=== PATIENT | male | born 1995 | race Caucasian/White ===

== ENCOUNTER 2018-07-05 02:01 | Emergency (ER) | payer BC ==
[2018-07-05] MEDS ORDERED: ONDANSETRON 4 MG/2 ML VIAL IVP ONE (02:07)
[2018-07-05] MEDS ORDERED: NS 1,000 ML IV ONE (02:07)
--- NOTE | 2018-07-05 02:10 | EDPHY ---
H & P Time Seen by Provider: 07/05/18 02:08 HPI/ROS: HPI CHIEF COMPLAINT: Alcohol Intoxication HISTORY OF PRESENT ILLNESS: 22-year-old male, presents to the emergency room acute alcohol intoxication. Patient arrives by EMS and is very somnolent, however protecting his airway. Patient is highly intoxicated with alcohol. Unable to obtain any history from him. EMS reports they were called to a private residence where he was found vomiting and had vomit all over him. Smells of alcohol. They report no trauma. Normal blood glucose of 125. EMS reports that the patient was found in a closet vomiting. Then 911 was called. Patient is on a [facility] HOLD. He arrives to ER room 18. And is highly intoxicated with alcohol. Past Medical History: Unknown Past Surgical History: Unknown Social History: Per EMS Large amount of alcohol this evening. Unknown exact quantity. Family History: Unknown ROS REVIEW OF SYSTEMS: Limited due to acute alcohol intoxication Exam Constitutional Intoxicated, triage nursing summary reviewed, vital signs reviewed, somnolent, smells of alcohol Eyes normal conjunctivae and sclera, horizontal beating nystagmus consistent acute alcohol intoxication, otherwise pupils equal and react to light HENT normal inspection, atraumatic, moist mucus membranes, no epistaxis, neck supple/ no meningismus, no raccoon eyes. Respiratory clear to auscultation bilaterally, normal breath sounds, no respiratory distress, no wheezing. Cardiovascular rate normal, regular rhythm, no murmur, no edema, distal pulses normal. Gastrointestinal soft, non-tender, no rebound, no guarding, normal bowel sounds, no distension, no pulsatile mass. Genitourinary no CVA tenderness. Musculoskeletal no midline vertebral tenderness, full range of motion, no calf swelling, no tenderness of extremities, no meningismus, good pulses, neurovascularly intact. Skin pink, warm, & dry, no rash, skin atraumatic. Neurologic somnolent. Moves all extremities. Responds to painful stimuli. Psychiatric normal mood/affect. Heme/Lymph/Immune no lymphadenopathy. Differential Diagnosis: Includes but is not limited to in a particular order acute alcohol intoxication, alcohol abuse, dehydration, electrolyte abnormality , nausea vomiting from acute alcohol intoxication Medical Decision Making: Plan for this patient IV establishment satellite project site monitor pulse ox, IV fluid bolus, IV Zofran for nausea, basic labs, electrolytes , serum alcohol level monitor for worsening of condition monitor for sobriety. Re-evaluation: Serum alcohol level 252 at 3:04 a.m.. 0755: Patient re-evaluated this time he is now sober, ambulatory, p. O. Challenge stand he can be safely discharged to detox. He denies any complaints. He answers questions appropriately, stable gait. [id number]: Patient to be discharged to the [facility]. Source: Patient, EMS Constitutional: Initial Vital Signs Temperature (C) 36.6 C 07/05/18 02:11 Heart Rate 60 07/05/18 02:11 Respiratory Rate 16 07/05/18 02:11 Blood Pressure 116/87 H 07/05/18 02:11 O2 Sat (%) 98 07/05/18 02:11 O2 Delivery Mode Room Air Allergies/Adverse Reactions: Unable to Assess Allergy (Unverified 07/05/18 02:05) Home Medications: Medication Instructions Recorded Unobtainable 07/05/18 Medical Decision Making - Data Points Laboratory Results: Laboratory Results 07/05/18 02:15 07/05/18 02:15 07/05/18 07/05/18 02:15 02:15 WBC 14.25 10^3/uL H 10^3/uL (3.80-9.50) RBC 5.13 10^6/uL 10^6/uL (4.40-6.38) Hgb 16.0 g/dL g/dL (13.7-17.5) Hct 45.5 % % (40.0-51.0) MCV 88.7 fL fL (81.5-99.8) MCH 31.2 pg pg (27.9-34.1) MCHC 35.2 g/dL g/dL (32.4-36.7) RDW 12.3 % % (11.5-15.2) Plt Count 291 10^3/uL 10^3/uL (150-400) MPV 9.4 fL fL (8.7-11.7) Neut % (Auto) 67.7 % % (39.3-74.2) Lymph % (Auto) 24.8 % % (15.0-45.0) [place] % (Auto) 6.0 % % (4.5-13.0) Eos % (Auto) 0.4 % L % (0.6-7.6) Baso % (Auto) 0.6 % % (0.3-1.7) Nucleat RBC Rel Count 0.0 % % (0.0-0.2) Absolute Neuts (auto) 9.65 10^3/uL H 10^3/uL (1.70-6.50) Absolute Lymphs (auto) 3.54 10^3/uL H 10^3/uL (1.00-3.00) Absolute Monos (auto) 0.85 10^3/uL H 10^3/uL (0.30-0.80) Absolute Eos (auto) 0.05 10^3/uL 10^3/uL (0.03-0.40) Absolute Basos (auto) 0.09 10^3/uL 10^3/uL (0.02-0.10) Absolute Nucleated RBC 0.00 10^3/uL 10^3/uL (0-0.01) Immature Gran % 0.5 % % (0.0-1.1) Immature Gran # 0.07 10^3/uL 10^3/uL (0.00-0.10) Sodium 142 mEq/L mEq/L (135-145) Potassium 4.2 mEq/L mEq/L (3.5-5.2) Chloride 106 mEq/L mEq/L (97-110) Carbon Dioxide 21 mEq/l L mEq/l (22-31) Anion Gap 15 mEq/L H mEq/L (6-14) BUN 10 mg/dL mg/dL (7-23) Creatinine 0.8 mg/dL mg/dL (0.7-1.3) Estimated GFR > 60 Glucose 111 mg/dL H mg/dL (70-100) Calcium 9.4 mg/dL mg/dL (8.5-10.4) Ethyl Alcohol 252 mg/dL H mg/dL (0-10) Medications Given: Discontinued Medications Sodium Chloride (Ns) 1,000 mls @ 0 mls/hr IV EDNOW ONE; Wide Open PRN Reason: Protocol Stop: 07/05/18 02:08 Last Admin: 07/05/18 02:22 Dose: 1,000 mls Ondansetron HCl (Zofran) 4 mg IVP EDNOW ONE Stop: 07/05/18 02:08 Last Admin: 07/05/18 02:22 Dose: 4 mg Departure - Departure Disposition: Home, Routine, Self-Care Clinical Impression: Alcoholic intoxication Condition: Good Instructions: Alcohol Intoxication (ED), Abuse of Alcohol (ED) Referrals: Patient,NotPresent [Primary Care Provider] - As per Instructions
[2018-07-05 02:21] LABS: PLATELET COUNT 291 10^3/uL (150-400)
[2018-07-05 08:13] VITALS: BP 137/86
== END 2018-07-05 08:44 | disposition home or self-care (01) ==
DX: F10.920 Alcohol use, unspecified with intoxication, uncomplicated (principal); E86.9 Volume depletion, unspecified
CPT/HCPCS: 96374; G0480; J2405